=== PATIENT | male | born 1950 | race American Indian/Alaskan Native ===

== ENCOUNTER 2016-05-02 09:38 | Outpatient (CLI) | payer MEDICARE, MEDICAID ==
--- NOTE | 2016-05-02 12:06 | Cat Scan Report ---
CT OF THE ABDOMEN AND PELVIS (CT ENTEROGRAPHY) WITH ORAL CONTRAST: FINDINGS: Comparison is made to the previous study on April 01, 2010. Minimal parenchymal scarring is seen in the lingular segment of the left upper lobe, unchanged. The liver and spleen are normal. The gallbladder is contracted and contains a single calcification. The wall of the gallbladder is not thickened. The kidneys and adrenal glands are unremarkable. There is persistent mural thickening of the distal ileum, the overall pattern of which is similar to the previous study in 2009. No additional areas of bowel wall thickening is identified. There is no free air. There is less mesenteric edema compared to the previous study. Small mesenteric lymph nodes are again noted. There is no evidence of bowel obstruction. There are no pelvic fluid collections or other significant findings. IMPRESSION: 1. Stable mural thickening involving the distal ileum with decreasing mesenteric inflammation. No skip lesions are identified. 2. Cholelithiasis.
== END 2016-05-02 09:39 | disposition home or self-care (01) ==
LOC: CT 09:38
PROVIDERS: ATTEND Internal Medicine Gastroenterology
DX: K50.80 Crohn's disease of both small and large intestine without complications (principal); K80.21 Calculus of gallbladder without cholecystitis with obstruction; K82.8 Other specified diseases of gallbladder
CPT/HCPCS: 74176

== ENCOUNTER 2017-07-16 11:38 | Inpatient (IN) | payer MEDICARE ==
--- NOTE | 2017-07-16 12:10 | Emergency Department Report ---
HPI - General Chief Complaint: Arrhythmia/Palpitations Time Seen by Provider: 07/16/17 11:56 - HPI HPI: Room 18 The patient is a 66-year-old male presenting with chief complaint of palpitations. The patient states he was in the bed this morning when he received a telephone call. The patient states after the call he again developed palpitations consistent with his previous bouts of SVT. Patient states he had a cardiac ablation last month for SVT. The patient states during the palpitations he had chest pressure and shortness of breath. The patient came to the ED was found to be in SVT with a rate of 178 bpm. The patient states he vomited once and then the palpitations stopped. Location: Cardiovascular system Duration: [See above] Quality: Palpitations, pressure Severity: Currently 0/10 Modifying factors: [see above] Context: [see above] Mode of transportation: [not driving] ED Past Medical Hx - Past Medical History Hx Asthma: Yes Hx COPD: Yes Additional medical history: SVT status post cardiac ablation. Crohn's disease - Surgical History Additional Surgical History: ablasion,colon resection (secondary to Crohn's) - Family History Family history: no significant - Social History Smoking Status: Never Smoker Substance Use Type: None (denies illicit drug use), Alcohol (occasional) ED Review of Systems ROS: Stated complaint: CHEST PAIN Other details as noted in HPI Respiratory: shortness of breath Cardiovascular: chest pain, palpitations Gastrointestinal: nausea, vomiting Physical Exam - Physical Exam Vital Signs: Vital Signs 07/16/17 07/16/17 11:48 11:57 Temperature 97.9 F Pulse Rate 178 H Respiratory 18 Rate Blood Pressure 122/96 [Left] O2 Sat by Pulse 97 Oximetry Physical Exam: GENERAL: The patient is well-developed well-nourished male sitting on stretcher not appear to be in acute distress. [] HEENT: Normocephalic. Atraumatic. Extraocular motions are intact. Patient has moist mucous membranes. NECK: Supple. Trachea midline CHEST/LUNGS: Clear to auscultation. There is no respiratory distress noted. HEART/CARDIOVASCULAR: Regular. There is no tachycardia. There is no gallop rub or murmur. ABDOMEN: Abdomen is soft, nontender. Patient has normal bowel sounds. There is no abdominal distention. SKIN: There is no rash. There is no edema. NEURO: The patient is awake, alert, and oriented. The patient is cooperative. The patient has normal speech MUSCULOSKELETAL: There is no evidence of acute injury. ED Course Vital Signs 07/16/17 07/16/17 11:48 11:57 Temperature 97.9 F Pulse Rate 178 H Respiratory 18 Rate Blood Pressure 122/96 [Left] O2 Sat by Pulse 97 Oximetry - Consultations Consultation #1: 07/16/17 12:05 Cardiology paged- will eval 07/16/17 13:14 Case discussed with cardiology (Ruby)-requests patient be admitted by the hospitalist ED Medical Decision Making - Lab Data Result diagrams: 07/16/17 12:25 07/16/17 12:25 Laboratory Tests 07/16/17 07/16/17 12:25 12:25 WBC 12.5 H RBC 4.28 Hgb 13.3 Hct 41.4 MCV 97 H MCH 31 MCHC 32 RDW 14.6 Plt Count 326 Lymph % (Auto) 18.8 Stephenson % (Auto) 6.3 Eos % (Auto) 2.5 Baso % (Auto) 0.3 Lymph # 2.3 Stephenson # 0.8 Eos # 0.3 Baso # 0.0 Seg Neutrophils % 72.1 H Seg Neutrophils # 9.0 H Sodium 143 Potassium 4.1 Chloride 103.1 Carbon Dioxide 26 Anion Gap 18 BUN 14 Creatinine 1.2 Estimated GFR > 60 BUN/Creatinine Ratio 12 Glucose 101 H Calcium 9.1 Magnesium 1.70 Total Creatine Kinase 137 CK-MB (CK-2) 1.9 CK-MB (CK-2) Rel Index 1.3 Troponin T < 0.010 - EKG Data -: EKG Interpreted by Me Rate: tachycardia (178 bpm) - EKG Data When compared to previous EKG there are: changes noted Interpretation: other (SVT) 07/16/17 12:16 EKG #2 Normal sinus rhythm at 85 bpm. T-wave inversion in lead aVL and V2. - Differential Diagnosis SVT Critical care attestation.: If time is entered above; I have spent that time in minutes in the direct care of this critically ill patient, excluding procedure time. ED Disposition Clinical Impression: SVT (supraventricular tachycardia) Disposition: -09 OP ADMIT IP TO THIS HOSP Is pt being admited?: Yes Does the pt Need Aspirin: Yes Condition: Fair Time of Disposition: 13:14 (hospitalist notified (Dr. Johnson))
[2017-07-16 12:43] LABS: Basophils % (Auto) 0.3 % (0.0-1.8); Eosinophils # (Auto) 0.3 K/mm3 (0.0-0.4); Eosinophils % (Auto) 2.5 % (0.0-4.3); Hematocrit 41.4 % (35.5-45.6); Hemoglobin 13.3 gm/dl (11.8-15.2); Lymphocytes # (Auto) 2.3 K/mm3 (1.2-5.4); Lymphocytes % (Auto) 18.8 % (13.4-35.0); Mean Corpuscular HGB Conc 32 % (32-34); Mean Corpuscular Hemoglobin 31 pg (28-32); Mean Corpuscular Volume 97 fl (84-94); Monocytes # (Auto) 0.8 K/mm3 (0.0-0.8); Monocytes % (Auto) 6.3 % (0.0-7.3); Platelet Count 326 K/mm3 (140-440); Red Blood Count 4.28 M/mm3 (3.65-5.03); Red Cell Distribution Width 14.6 % (13.2-15.2)
[2017-07-16 12:59] LABS: Creatine Kinase MB 1.9 ng/mL (0.0-4.0)
[2017-07-16 13:00] LABS: BUN/Creatinine Ratio 12; Blood Urea Nitrogen 14 mg/dL (9-20); Calcium 9.1 mg/dL (8.4-10.2); Hemolysis Index 5
[2017-07-16] MEDS ORDERED: ASPIRIN PO ONE (13:16)
[2017-07-16 13:20] LABS: Free T4 (Free Thyroxine) 1.15 ng/dL (0.76-1.46)
--- NOTE | 2017-07-16 13:36 | Consultation ---
History of Present Illness Consult date: 07/16/17 Requesting physician: JEFERSON NICHOLSON Consult reason: tachycardia History of present illness: The pt is a 66 YO male with a past medical history significant for PSVT s/p AVNRT ablation on 07/05/[address] Lopez, NSVT, HTN, hepatitis C, hepatitis B, Crohn's disease, colon resection secondary to Crohn's disease. He is followed in our office by Dr. Johnston. He presented with c/o palpitations. He states that he was sleeping this morning when he got a phone call. He was awakened by the phone call and was on the phone when he noted the onset of his palpitations. He then developed some lightheadedness. Upon arrival to ED, pt was noted to be in SVT with HR in 170s. However, pt developed nausea and vomited once in ED and spontaneously converted to SR with no intervention required. Pt admits to excessive alcohol consumption last night in celebration of [facility]. On evaluation, pt denies any current complaints and remains in SR. Pt reports compliance with his home medications, including Toprol XL. Serum K+ 4.1; Mg 1.7; troponin negative for AMI x 1; thyroid profile WNL. Echo done 05/2017 showed EF 60%, trace MR, trace TR. Lexiscan MPI stress test done 05/2017 was technically suboptimal, negative for significant ischemia,EF 75%. Past History Past Medical History: arrhythmia, hepatitis, hypertension, other (Crohn's disease) Past Surgical History: Other (AVNRT ablation 07/05/2017; colon resection ) Medications and Allergies Allergies Allergy/AdvReac Type Severity Reaction Status Date / Time lisinopril Allergy Swelling Unverified 04/13/16 10:02 Review of Systems Constitutional: no weight loss, no weight gain, no fever, no chills, no sweats Ears, nose, mouth and throat: no ear pain, no nose pain, no sinus pressure, no sinus pain Cardiovascular: palpitations, rapid/irregular heart beat, lightheadedness, no chest pain, no orthopnea, no edema, no syncope, no shortness of breath, no dyspnea on exertion, no leg edema Respiratory: no cough, no shortness of breath, no dyspnea on exertion, no congestion, no wheezing, no pain on inspiration Gastrointestinal: nausea, vomiting, diarrhea (chronic ), no abdominal pain, no constipation, no change in bowel habits Genitourinary Male: no dysuria, no hematuria, no flank pain, no discharge, no urinary frequency, no urinary hesitancy Musculoskeletal: no neck stiffness, no neck pain, no shooting arm pain, no arm numbness/tingling, no low back pain, no shooting leg pain, no leg numbness/ tingling, no redness of joints Integumentary: no rash, no pruritis, no redness, no sores, no wounds Neurological: no head injury, no paralysis, no weakness, no parathesias, no numbness, no tingling, no seizures, no syncope Psychiatric: no anxiety Endocrine: no cold intolerance, no heat intolerance Hematologic/Lymphatic: no easy bruising, no easy bleeding, no lymphadenopathy Allergic/Immunologic: no urticaria, no wheezing, no persistent infections Physical Examination Vital Signs Temp Pulse Resp Pulse Ox 97.9 F 178 H 18 97 07/16/17 11:48 07/16/17 11:48 07/16/17 11:48 07/16/17 11:48 General appearance: no acute distress HEENT: Positive: PERRL, Normocephaly, Mucus Membranes Moist Neck: Positive: neck supple, trachea midline Cardiac: Positive: Reg Rate and Rhythm, S1/S2 Lungs: Positive: clear to auscultation Neuro: Positive: Grossly Intact, Cranial Nerve 2-12 Intact Abdomen: Positive: Soft. Negative: Tender Skin: Positive: Clear. Negative: Rash, Wound Musculoskeletal: No Fluid Collection, No Pain, Normal Range of Motion Extremities: Absent: edema Results 07/16/17 12:25 07/16/17 12:25 Cardiac Enzymes 07/16/17 Range/Units 12:25 CK-MB (CK-2) 1.9 (0.0-4.0) ng/mL CBC 07/16/17 Range/Units 12:25 WBC 12.5 H (4.5-11.0) K/mm3 RBC 4.28 (3.65-5.03) M/mm3 Hgb 13.3 (11.8-15.2) gm/dl Hct 41.4 (35.5-45.6) % Plt Count 326 (140-440) K/mm3 Lymph # 2.3 (1.2-5.4) K/mm3 Creek # 0.8 (0.0-0.8) K/mm3 Eos # 0.3 (0.0-0.4) K/mm3 Baso # 0.0 (0.0-0.1) K/mm3 Comprehensive Metabolic Panel 07/16/17 Range/Units 12:25 Sodium 143 (137-145) mmol/L Potassium 4.1 (3.6-5.0) mmol/L Chloride 103.1 (98-107) mmol/L Carbon Dioxide 26 (22-30) mmol/L BUN 14 (9-20) mg/dL Creatinine 1.2 (0.8-1.5) mg/dL Glucose 101 H (75-100) mg/dL Calcium 9.1 (8.4-10.2) mg/dL - Imaging and Cardiology Echo: report reviewed (05/2017 showed EF 60%, trace MR, trace TR. ) EKG: report reviewed, image reviewed EKG interpretations - Telemetry EKG Rhythm: Sinus Rhythm Additional Comments: SVT Assessment and Plan Assessment: Paroxysmal SVT --> SR; lytes WNL; troponin negative for AMI; thyroid profile WNL S/p AVNRT ablation 07/05/[address] Lopez HTN H/o hepatitis B & C Crohn's disease - s/p colon resection ETOH use - cessation encouraged. Plan: Currently stable cardiac status. Reoccurrence of SVT may be related to ETOH consumption and/or may be related to ablation failure. Pt may discharge home from cardiology standpoint. Resume home cardiac regimen. D /w pt's primary agricultural research technician, Dr. Johnston. Follow up at [place] with Dr. Lopez on 07/20/2017. Dr. Lopez's office to call pt with appt time. Follow up in our [place] office with Dr. Johnston on 07/26/2017 @ 1:45PM. The patient has been seen in conjunction with Dr. Molina who agrees with the assessment and plan of care.
[2017-07-16 16:07] VITALS: BP 115/70
[2017-07-17] MEDS ORDERED: TOPROL XL PO SCH (10:00)
== END 2017-07-16 16:25 | disposition home or self-care (01) | DRG 309 ==
LOC: ED 11:38 → 4A 13:18
PROVIDERS: ADMIT Internal Medicine; ATTEND Internal Medicine
DX: I47.1 Supraventricular tachycardia (principal); K50.90 Crohn's disease, unspecified, without complications; J44.9 Chronic obstructive pulmonary disease, unspecified; I10 Essential (primary) hypertension; K75.9 Inflammatory liver disease, unspecified; Z88.8 Allergy status to other drugs, medicaments and biological substances; Z72.89 Other problems related to lifestyle; Z71.41 Alcohol abuse counseling and surveillance of alcoholic
CPT/HCPCS: 36415; 80048; 82550; 82553; 83735; 84439; 84443; 84484; 85025; 93005; 93010; J0153

== ENCOUNTER 2017-07-18 22:50 | Observation (INO) | payer MEDICARE ==
--- NOTE | 2017-07-18 23:12 | Emergency Department Report ---
HPI - General Time Seen by Provider: 07/18/17 23:03 - HPI HPI: Room 21 The patient is a 66-year-old dami presents with a chief complaint of palpitations chest pain or shortness breath. The patient has a history of PSVT seen by myself for the same 3 days ago. The patient states this evening while shoes again he developed palpitations associated with chest pain shortness of breath. Patient states he felt nauseous but has not vomited yet. While the patient was having an IV established in the ED had the patient perform a vagal maneuver which broke the SVT. Patient is currently normal sinus rhythm states he is feeling better Location: Chest Duration: Just prior to arrival Quality: Pain, palpitations Severity: Moderate Modifying factors: [see above] Context: [see above] Mode of transportation: [not driving] ED Past Medical Hx - Past Medical History Hx Asthma: Yes Hx COPD: Yes Additional medical history: SVT status post cardiac ablation. Crohn's disease - Surgical History Additional Surgical History: ablasion,colon resection (secondary to Crohn's) - Family History Family history: no significant - Social History Smoking Status: Never Smoker Substance Use Type: None (denies illicit drug use), Alcohol (occasional) ED Review of Systems ROS: Stated complaint: Chest pain Other details as noted in HPI Respiratory: shortness of breath Cardiovascular: chest pain, palpitations Gastrointestinal: nausea Physical Exam - Physical Exam Physical Exam: GENERAL: The patient is well-developed well-nourished male sitting on stretcher not appearing to be in acute distress. [] HEENT: Normocephalic. Atraumatic. Extraocular motions are intact. Patient has moist mucous membranes. NECK: Supple. Trachea midline CHEST/LUNGS: Clear to auscultation. There is no respiratory distress noted. HEART/CARDIOVASCULAR: Regular. There is tachycardia. There is no gallop rub or murmur. ABDOMEN: Abdomen is soft, nontender. Patient has normal bowel sounds. There is no abdominal distention. SKIN: There is no rash. There is no edema. There is no diaphoresis. NEURO: The patient is awake, alert, and oriented. The patient is cooperative. The patient has normal speech MUSCULOSKELETAL: There is no evidence of acute injury. ED Course - Reevaluation(s) Reevaluation #1: 07/19/17 00:11 Patient remains asymptomatic - Consultations Consultation #1: 07/19/17 00:04 Cardiology paged 07/19/17 00:08 Case an EKGs discussed with Dr. Mckeon-requests hospitalist admit ED Medical Decision Making - Lab Data Result diagrams: 07/18/17 23:19 07/18/17 23:19 Laboratory Tests 07/18/17 07/18/17 23:19 23:19 WBC 14.3 H RBC 4.22 Hgb 13.1 Hct 40.8 MCV 97 H MCH 31 MCHC 32 RDW 14.4 Plt Count 320 Lymph % (Auto) 13.8 Mckean % (Auto) 5.2 Eos % (Auto) 1.6 Baso % (Auto) 0.2 Lymph # 2.0 Mckean # 0.7 Eos # 0.2 Baso # 0.0 Seg Neutrophils % 79.2 H Seg Neutrophils # 11.3 H Sodium 142 Potassium 3.4 L Chloride 103.6 Carbon Dioxide 23 Anion Gap 19 BUN 16 Creatinine 1.3 Estimated GFR > 60 BUN/Creatinine Ratio 12 Glucose 117 H Calcium 8.2 L Total Creatine Kinase 128 CK-MB (CK-2) 1.9 CK-MB (CK-2) Rel Index 1.4 Troponin T < 0.010 - EKG Data -: EKG Interpreted by Me Rate: tachycardia - EKG Data Interpretation: other ([id number] bpm. ST depressions inferolaterally) 07/19/17 00:02 EKG #2 (post-vagal maneuver) normal sinus rhythm at 85 bpm T-wave inversions in leads aVL, V2. - Differential Diagnosis PSVT Critical care attestation.: If time is entered above; I have spent that time in minutes in the direct care of this critically ill patient, excluding procedure time. ED Disposition Clinical Impression: SVT (supraventricular tachycardia), Chest pain Disposition: OP ADMIT IP TO THIS HOSP Is pt being admited?: Yes Does the pt Need Aspirin: Yes Condition: Fair Instructions: Chest Pain (ED) Time of Disposition: 00:08 (hospitalist paged ( Dr. Kiera Allred))
[2017-07-18 23:33] LABS: Basophils % (Auto) 0.2 % (0.0-1.8); Eosinophils # (Auto) 0.2 K/mm3 (0.0-0.4); Eosinophils % (Auto) 1.6 % (0.0-4.3); Hematocrit 40.8 % (35.5-45.6); Hemoglobin 13.1 gm/dl (11.8-15.2); Lymphocytes % (Auto) 13.8 % (13.4-35.0); Mean Corpuscular HGB Conc 32 % (32-34); Mean Corpuscular Hemoglobin 31 pg (28-32); Mean Corpuscular Volume 97 fl (84-94); Monocytes # (Auto) 0.7 K/mm3 (0.0-0.8); Monocytes % (Auto) 5.2 % (0.0-7.3); Platelet Count 320 K/mm3 (140-440); Red Blood Count 4.22 M/mm3 (3.65-5.03); Red Cell Distribution Width 14.4 % (13.2-15.2)
[2017-07-18 23:49] LABS: Creatine Kinase MB 1.9 ng/mL (0.0-4.0)
[2017-07-18 23:50] LABS: BUN/Creatinine Ratio 12; Blood Urea Nitrogen 16 mg/dL (9-20); Calcium 8.2 mg/dL (8.4-10.2); Hemolysis Index 5
[2017-07-19] MEDS ORDERED: ASPIRIN PO ONE (00:10)
[2017-07-19] MEDS ORDERED: TYLENOL PO PRN (01:21)
[2017-07-19] MEDS ORDERED: ZOFRAN IV PRN (01:21)
[2017-07-19] MEDS ORDERED: MORPHINE IV PRN (01:21)
[2017-07-19] MEDS ORDERED: SODIUM CHLORIDE FLUSH SYRINGE 10 ML IV PRN (01:21)
--- NOTE | 2017-07-19 01:26 | History and Physical Report ---
History of Present Illness Date of examination: 07/19/17 History of present illness: 67 year old man with history of asthma, Crohn's disease, PSVT comes emergency room for evaluation of palpitation. The patient is status post ablation on July 05 and on Sunday he was here in the emergency room with an episode of SVT. He developed nausea and vomiting in the emergency room which converted him to normal sinus rhythm and he was discharged. Patient stated that he was tying his shoe, he developed palpitation, shortness of breath and associated chest pain with nausea. Patient was converted to normal sinus rhythm with vagal maneuver Review of systems Constitutional: no weight loss, chills Ears, eyes, nose, mouth and throat: no nasal congestion, no nasal discharge, no sinus pressure, no vision change, no red eye. Neck: No neck pain or rigidity. Cardiovascular:+chest pain, palpitations Respiratory: No cough, shortness of breath Gastrointestinal: no abdominal pain, hematochezia Genitourinary : no dysuria, frequency , no hematuria Musculoskeletal: no joint swelling or muscle ache Integumentary: no rash, no pruritis Neurological: no parathesias, no numbness, no focal weakness Endocrine: no cold or heat intolerance, no polyuria or polydipsia Hematologic/Lymphatic: no easy bruising, no easy bleeding, no gland swelling Allergic/Immunologic: no urticaria, no angioedema. PAST MEDICAL HISTORY:PSVT, asthma PAST SURGICAL HISTORY: colon resection, left BKA SOCIAL HISTORY:Denies tobacco, drugs, alcohol 5x/week FAMILY HISTORY: Hypertension Medications and Allergies Allergies Allergy/AdvReac Type Severity Reaction Status Date / Time lisinopril Allergy Swelling Verified 07/16/17 15:38 Home Medications Medication Instructions Recorded Confirmed Last Taken Type AtorvaSTATin [Lipitor] 10 mg PO QHS 07/19/17 07/19/17 07/18/17 History Cyclobenzaprine [Flexeril] 10 mg PO PRN 07/19/17 07/19/17 06/18/17 History Folic Acid [Folvite] 1 mg PO QDAY 07/19/17 07/19/17 07/18/17 History Losartan Potassium [Cozaar] 25 mg PO DAILY 07/19/17 07/19/17 06/28/17 History Metoprolol Xl [Metoprolol 50 mg PO QDAY 07/19/17 07/19/17 07/18/17 History SUCCINATE ER TAB] Nitroglycerin [Nitrostat] 0.4 mg SL Q5M PRN 07/19/17 07/19/17 07/18/17 History Ranitidine HCl [Acid Python Architect] 150 mg PO DAILY 07/19/17 07/19/17 07/18/17 History Tamsulosin HCl [Flomax] 0.4 mg PO DAILY 07/19/17 07/19/17 07/18/17 History Zolpidem [Ambien] 10 mg PO QHS 07/19/17 07/19/17 07/18/17 History Active Meds: Active Medications Acetaminophen (Tylenol) 650 mg PO Q4H PRN PRN Reason: Pain MILD(1-3)/Fever >100.5/WATTS Enoxaparin Sodium (Lovenox) 30 mg SUB-Q QDAY RO Morphine Sulfate (Morphine) 2 mg IV Q4H PRN PRN Reason: Pain, Moderate (4-6) Ondansetron HCl (Zofran) 4 mg IV Q8H PRN PRN Reason: Nausea And Vomiting Sodium Chloride (Sodium Chloride Flush Syringe 10 Ml) 10 ml IV BID RO Sodium Chloride (Sodium Chloride Flush Syringe 10 Ml) 10 ml IV PRN PRN PRN Reason: LINE FLUSH Exam - Physical Exam Narrative exam: Gen. appearance: Patient lying in bed, no apparent distress HEENT: Normocephalic, atraumatic, pupils equally round and reactive to light, extraocular movement intact, and no sclericterus,. No JVD or thyromegaly or nodule,neck supple, no carotid bruit ,mucous membranes moist, no exudate or erythema Heart: S1, S2, regular rate and rhythm Lungs: Clear to auscultation bilaterally, breathing comfortable Abdomen: Positive bowel sounds, nontender, nondistended, no organomegaly Extremity: No edema, cyanosis, clubbing Skin: No rash, nodules, warm, dry Neuro: Oriented 3, cranial nerves II-12 intact, speech is fluent, motor and sensory intact - Constitutional Vitals: Temp Pulse Resp BP Pulse Ox 97.9 F 88 18 132/82 96 07/18/17 23:09 07/18/17 23:45 07/19/17 00:02 07/18/17 23:45 07/19/17 00:02 Results - Labs CBC & Chem 7: 07/18/17 23:19 07/18/17 23:19 Labs: Abnormal lab results 07/18/17 07/18/17 Range/Units 23:19 23:19 WBC 14.3 H (4.5-11.0) K/mm3 MCV 97 H (84-94) fl Seg Neutrophils % 79.2 H (40.0-70.0) % Seg Neutrophils # 11.3 H (1.8-7.7) K/mm3 Potassium 3.4 L (3.6-5.0) mmol/L Glucose 117 H (75-100) mg/dL Calcium 8.2 L (8.4-10.2) mg/dL - Imaging and Cardiology EKG: image reviewed Assessment and Plan Assessment SVT Crohn's disease Asthma Plan Admit to medicine neurologic cardiac enzymes, consult cardiology Continue appropiate outpatient medications DVT prophylaxis
[2017-07-19 02:20] LABS: Creatine Kinase MB 2.1 ng/mL (0.0-4.0)
[2017-07-19 08:14] LABS: Creatine Kinase MB 2.1 ng/mL (0.0-4.0)
[2017-07-19] MEDS ORDERED: K-DUR PO NR (08:39)
[2017-07-19 09:11] VITALS: BP 118/76
--- NOTE | 2017-07-19 09:55 | Event Note ---
Date: 07/19/17 This patient was seen by some other heart cardiology here in the emergency department. After their evaluation, they have decided to transfer the patient to [facility] so the patient can see his candy packer Dr Lopez and the patient has been accepted by this physician for transfer to [facility].
[2017-07-19] MEDS ORDERED: LOVENOX SUB-Q SCH ×2 (10:00)
[2017-07-19] MEDS ORDERED: SODIUM CHLORIDE FLUSH SYRINGE 10 ML IV SCH (10:00)
--- NOTE | 2017-07-19 10:27 | Discharge Summary ---
Providers - Providers Date of Admission: 07/19/17 01:21 Date of discharge: 07/19/17 Attending physician: ELVIRA PERRY 07/19/17 01:21 Consult to Physician [CONS] Routine Comment: Dr. Kumar (er dr) spoke with Dr. Molly Alex Consulting Provider: LUKE LAEX Physician Instructions: Reason For Exam: svt Primary care physician: DENNIS DIOR Hospitalization Condition: Fair Hospital course: 67 year old man with history of asthma, Crohn's disease, PSVT comes emergency room for evaluation of palpitation. The patient is status post ablation on July 05 and on Sunday he was here in the emergency room with an episode of SVT. He developed nausea and vomiting in the emergency room which converted him to normal sinus rhythm and he was discharged. Patient stated that he was tying his shoe, he developed palpitation, shortness of breath and associated chest pain with nausea. Patient was converted to normal sinus rhythm with vagal maneuver. Cardiology was consulted, after their evaluation, they have decided to transfer the patient to [facility] so the patient can see his heavy duty press operator Dr Lopez and the patient has been accepted by this physician for transfer to [facility]. Patient was discharged to [facility] in stable condition. Discharge diagnoses: SVT, transfer to [place] for further rehabilitation History of asthma, not in exacerbation Crohn's disease, stable Mild hypokalemia Physical exam: GENERAL: lying on bed appeared to be in no discomfort. HEENT: Normocephalic. Atraumatic. No conjunctival congestion or icterus. Patient has moist mucous membranes. NECK: Supple. Trachea midline. CHEST/LUNGS: Clear to auscultated bilaterally, breathing nonlabored. No wheezes crackles or rhonchi. HEART/CARDIOVASCULAR: S1 and S2 positive. ABDOMEN: Abdomen is soft, nontender. Patient has normal bowel sounds. SKIN: There is no rash. Warm and dry. NEURO: No focal motor deficit. Follows command. MUSCULOSKELETAL: No joint effusion or tenderness. EXTRIMITY: No edema, no cyanosis or clubbing. PSYCH: Cooperative. Disposition: DC/TX-70 ANOTHER TYPE HLTHCARE Time spent for discharge: 32 minutes Core Measure Documentation - Palliative Care Palliative Care/ Comfort Measures: Not Applicable - Core Measures Any of the following diagnoses?: none Exam - Constitutional Vitals: Temp Pulse Resp BP Pulse Ox 97.9 F 110 H 25 H 118/76 90 07/18/17 23:09 07/19/17 09:00 07/19/17 09:00 07/19/17 09:00 07/19/17 09:00 Plan Activity: other (bedrest) Diet: low fat, low salt Follow up with: DENNIS DIOR MD [Primary Care Provider] - 3-5 Days
--- NOTE | 2017-07-19 12:00 | Consultation ---
History of Present Illness Consult date: 07/19/17 Requesting physician: HOMERO LAMBERT Consult reason: other (svt) History of present illness: The pt is a 67 YO male with a past medical history significant for PSVT s/p AVNRT ablation on 07/05/[address] Lopez, NSVT, HTN, hepatitis C, hepatitis B, Crohn's disease, colon resection secondary to Crohn's disease. He is followed in our office by Dr. Johnston. He presented with c/o palpitations. He states that he was bending over to tie his shoe yesterday evening around 10PM when he developed palpitations. Upon EMS arrival, he was noted to be in SVT. Following arrival to ED, he remained in SVT and after performing vasovagal maneuvers, he converted to SR. Of note, pt was recently evaluated at [facility] ED on 07/16/2017 for a bout of SVT which converted to SR after the pt had a bout of nausea and vomiting. 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 Lopez, tomorrow on 07/20/2017. Dr. Lopez was contacted per Dr. Molina this AM and the decision has been made to transfer the pt to [facility] per Dr. Lopez for possible ablation later today. Echo done 05/2017 showed EF 60%, trace MR, trace TR. Lexiscan MPI stress test done 05/2017 was technically suboptimal, negative for significant ischemia,EF 75%. Past History Past Medical History: arrhythmia, hepatitis, hypertension Medications and Allergies Allergies Allergy/AdvReac Type Severity Reaction Status Date / Time lisinopril Allergy Swelling Verified 07/16/17 15:38 Home Medications Medication Instructions Recorded Confirmed Last Taken Type AtorvaSTATin [Lipitor] 10 mg PO QHS 07/19/17 07/19/17 07/18/17 History Cyclobenzaprine [Flexeril] 10 mg PO PRN 07/19/17 07/19/17 06/18/17 History Folic Acid [Folvite] 1 mg PO QDAY 07/19/17 07/19/17 07/18/17 History Losartan Potassium [Cozaar] 25 mg PO DAILY 07/19/17 07/19/17 06/28/17 History Metoprolol Xl [Metoprolol 50 mg PO QDAY 07/19/17 07/19/17 07/18/17 History SUCCINATE ER TAB] Nitroglycerin [Nitrostat] 0.4 mg SL Q5M PRN 07/19/17 07/19/17 07/18/17 History Ranitidine HCl [Acid Tub Chucker] 150 mg PO DAILY 07/19/17 07/19/17 07/18/17 History Tamsulosin HCl [Flomax] 0.4 mg PO DAILY 07/19/17 07/19/17 07/18/17 History Zolpidem [Ambien] 10 mg PO QHS 07/19/17 07/19/17 07/18/17 History Review of Systems Constitutional: no weight loss, no weight gain, no fever, no chills, no sweats Ears, nose, mouth and throat: no ear pain, no nose pain, no sinus pressure, no sinus pain Cardiovascular: palpitations, rapid/irregular heart beat, no chest pain, no orthopnea, no edema, no syncope, no lightheadedness, no shortness of breath, no dyspnea on exertion, no paroxysmal nocturnal dyspnea Respiratory: no cough, no shortness of breath, no dyspnea on exertion, no congestion, no wheezing, no pain on inspiration Gastrointestinal: no abdominal pain, no nausea, no vomiting, no diarrhea, no constipation, no change in bowel habits Genitourinary Male: no dysuria, no hematuria, no flank pain, no discharge, no urinary frequency, no urinary hesitancy Musculoskeletal: no neck stiffness, no neck pain, no shooting arm pain, no arm numbness/tingling, no low back pain, no shooting leg pain, no leg numbness/ tingling, no redness of joints Integumentary: no rash, no pruritis, no redness, no sores, no wounds Neurological: no head injury, no paralysis, no weakness, no parathesias, no numbness, no tingling, no seizures Psychiatric: no anxiety Endocrine: no cold intolerance, no heat intolerance Hematologic/Lymphatic: no easy bruising, no easy bleeding, no lymphadenopathy Allergic/Immunologic: no wheezing, no persistent infections Physical Examination Last Vital Signs Temp 97.9 F 07/18/17 23:09 Pulse 110 H 07/19/17 09:00 Resp 25 H 04/05/18 09:00 BP 118/76 07/19/17 09:00 Pulse Ox 90 07/19/17 09:00 General appearance: no acute distress HEENT: Positive: PERRL, Normocephaly, Mucus Membranes Moist Neck: Positive: neck supple, trachea midline Cardiac: Positive: Reg Rate and Rhythm, S1/S2 Lungs: Positive: clear to auscultation Neuro: Positive: Grossly Intact, Cranial Nerve 2-12 Intact Abdomen: Positive: Soft. Negative: Tender Skin: Positive: Clear. Negative: Rash, Wound Musculoskeletal: No Fluid Collection, No Pain, Normal Range of Motion Extremities: Absent: edema Results 07/18/17 23:19 07/18/17 23:19 Cardiac Enzymes 07/18/17 07/19/17 07/19/17 Range/Units 23:19 01:40 07:46 CK-MB (CK-2) 1.9 2.1 2.1 (0.0-4.0) ng/mL CBC 07/18/17 Range/Units 23:19 WBC 14.3 H (4.5-11.0) K/mm3 RBC 4.22 (3.65-5.03) M/mm3 Hgb 13.1 (11.8-15.2) gm/dl Hct 40.8 (35.5-45.6) % Plt Count 320 (140-440) K/mm3 Lymph # 2.0 (1.2-5.4) K/mm3 Morrill # 0.7 (0.0-0.8) K/mm3 Eos # 0.2 (0.0-0.4) K/mm3 Baso # 0.0 (0.0-0.1) K/mm3 Comprehensive Metabolic Panel 07/18/17 Range/Units 23:19 Sodium 142 (137-145) mmol/L Potassium 3.4 L (3.6-5.0) mmol/L Chloride 103.6 (98-107) mmol/L Carbon Dioxide 23 (22-30) mmol/L BUN 16 (9-20) mg/dL Creatinine 1.3 (0.8-1.5) mg/dL Glucose 117 H (75-100) mg/dL Calcium 8.2 L (8.4-10.2) mg/dL - Imaging and Cardiology Echo: report reviewed (05/2017 showed EF 60%, trace MR, trace TR. ) EKG: report reviewed, image reviewed EKG interpretations - Telemetry EKG Rhythm: Sinus Rhythm Additional Comments: SVT Assessment and Plan Assessment: Paroxysmal SVT --> SR S/p AVNRT ablation 07/05/[address] Lopez HTN H/o hepatitis B & C Crohn's disease - s/p colon resection ETOH use - cessation encouraged. Plan: Dr. Lopez was contacted by Dr. Molina via telephone this AM and the decision has been made to transfer the pt to [facility] per Dr. Lopez for possible ablation later today. Follow up in our [place] office with Dr. Johnston on 07/26/2017 @ 1:45PM. The patient has been seen in conjunction with Dr. Molina who agrees with the assessment and plan of care.
== END 2017-07-19 11:29 | disposition other institution (70) ==
LOC: ED 22:50 → 4A 07-19 01:21
PROVIDERS: ADMIT Internal Medicine; ATTEND Internal Medicine
DX: I47.1 Supraventricular tachycardia (principal); I10 Essential (primary) hypertension; K50.90 Crohn's disease, unspecified, without complications; E87.6 Hypokalemia; B19.20 Unspecified viral hepatitis C without hepatic coma; B19.10 Unspecified viral hepatitis B without hepatic coma; J44.9 Chronic obstructive pulmonary disease, unspecified; Z72.89 Other problems related to lifestyle; Z82.49 Family history of ischemic heart disease and other diseases of the circulatory system; Z89.512 Acquired absence of left leg below knee
CPT/HCPCS: 36415; 80048; 82550; 82553; 84484; 85025; 93005; 93010; 99285; G0378; J0153

== ENCOUNTER 2017-07-23 12:14 | Outpatient (CLI) | payer MEDICARE ==
[2017-07-23] MEDS ORDERED: NACL ONE (13:00)
--- NOTE | 2017-07-23 16:54 | Cat Scan Report ---
FINAL REPORT EXAM: CT ABDOMEN PELVIS W CON HISTORY: R10.9 UNSPECIFIED ABD PAIN/R10.2 PELVIC AND PERINEAL PAIN TECHNIQUE: Standard enhanced CT of the abdomen and pelvis. Coronal and sagittal reconstruction was also performed. Delayed imaging through the kidneys and bladder was obtained. Contrast: Intravenous and oral contrast given. PRIORS: None. FINDINGS: In the right lower quadrant, there is a stellate region with tethering involving a redundant sigmoid colon and terminal ileum. There is significant wall thickening of the sigmoid loop crossing midline (axial image 93, series 2). Although there is mild distention of proximal small bowel loops, the oral contrast given does extend into the rectosigmoid region, therefore, excluding total obstruction. However, mild narrowing is noted in the region of tethering. Etiology of these findings may be inflammatory or neoplastic. Given the involvement of the terminal ileum, Crohn's disease should be considered. A few scattered diverticuli are seen in the colon so that diverticulitis may also be a consideration. Other neoplastic etiologies including carcinoid are included in the differential as well. Within the abdomen, the liver, spleen, pancreas, gallbladder, adrenal glands, and left kidney are unremarkable. There is an 9 mm hypodense cyst within the lower pole right kidney. No evidence for retroperitoneal or pelvic lymphadenopathy is seen. No fluid collection within the abdomen or pelvis. The appendix is not visualized. Within the pelvis, the bladder is unremarkable. The prostate is normal. No evidence for lymphadenopathy is seen in the pelvis. Bilateral inguinal hernias are noted containing only fat. Images through the upper abdomen include the lung bases which demonstrates mild interstitial scarring in the right base posteriorly. Bony structures show moderate disc space narrowing at L5-S1 with a subtle, grade 1, retrolisthesis of L5 on S1. There is a 12 mm sclerotic focus in the right ileum. There is a 7.7 mm sclerotic focus in the intertrochanteric region of the proximal right femur. IMPRESSION: 1. Stellate region of tethering in the right lower quadrant involving the redundant loop of sigmoid colon and adjacent terminal ileum. Although there is narrowing in this region, complete obstruction is excluded as the oral contrast is noted into the rectosigmoid region. Differential includes inflammatory or neoplastic etiologies as mentioned above. 2. Cyst in the upper pole right kidney. 3. Bilateral inguinal hernias containing only fat 4. Two sclerotic foci in the right ilium and right femur.
== END 2017-07-23 12:15 | disposition home or self-care (01) ==
LOC: CT 12:14
PROVIDERS: ATTEND Internal Medicine Hematology & Oncology
DX: N28.1 Cyst of kidney, acquired (principal); K40.90 Unilateral inguinal hernia, without obstruction or gangrene, not specified as recurrent; K57.30 Diverticulosis of large intestine without perforation or abscess without bleeding
CPT/HCPCS: 74177; Q9967